=== PATIENT | female | born 1970 | race African-American/Black ===

== ENCOUNTER 2020-05-07 17:42 | Observation (INO) ==
[2020-05-07] MEDS ORDERED: ONDANSETRON 4 MG/2 ML VIAL IV STA (18:49)
[2020-05-07] MEDS ORDERED: ALBUTEROL/IPRATROPIUM 3 ML NEB RESP TX STA (18:49)
[2020-05-07] MEDS ORDERED: methylPREDNISolone SOD SUC 125 MG/2 ML VIAL IV STA (18:49)
[2020-05-07] MEDS ORDERED: FUROSEMIDE 100 MG/10 ML VIAL IV STA (18:49)
[2020-05-07] MEDS ORDERED: ASPIRIN 325 MG TABLET PO STA (18:49)
[2020-05-07] MEDS ORDERED: MORPHINE 4 MG/1 ML VIAL IV STA (18:49)
[2020-05-07] MEDS ORDERED: NITROGLYCERIN 2% OINT 1 INCH/GM PACK TOP STA (18:52)
[2020-05-07 19:08] LABS: Basophils % 0.2 % (0.0-0.8); Eosinophils # 0.2 10*3/uL (0.0-0.87); Eosinophils % 1.9 % (0.00-10.9); Hematocrit 31.7 VOL% (35.7-47.0); Hemoglobin 9.8 GM/DL (12.0-16.0); Immature Granulocytes % 0.3 %; Immature Granulocytes Absolute 0.03 #; Lymphocytes # 2.6 10*3/uL (1.4-4.0); Lymphocytes % 27.8 % (21.3-54.2); Mean Corpuscular HGB Conc 30.9 GM/DL (32-36); Mean Corpuscular Volume 82.8 FL (87-102); Mean Platelet Volume 10.9 FL (9.6-12.0); Monocytes % 9.8 % (1.7-12.7); Platelet Count 252 T/CUMM (130-400); Red Blood Count 3.83 MC/CUMM (3.8-5.5); Red Cell Distribution Width 15.7 % (9.3-17.3); White Blood Count 9.5 T/CUMM (4-12)
[2020-05-07 19:13] LABS: PT Patient Result 10.7 SECS (9.8-11.9)
[2020-05-07 19:17] LABS: Alanine Aminotransferase 304 U/L (13-56); Albumin 3.5 G/DL (3.4-5.0); Alkaline Phosphatase 187 U/L (45-117); Aspartate Amino Transferase 173 U/L (0-37); Bilirubin,Total < 0.39 MG/DL (0.2-1.0); Blood Urea Nitrogen 21 MG/DL (7-18); Calcium 8.9 MG/DL (8.5-10.1); Estimated Glom Filtration Rate 99 ML/MIN; Glucose 157 MG/DL (74-106); Osmolality,Calculated 288.1 MOS/KG (273-304); Total Protein 7.3 G/DL (6.4-8.3)
[2020-05-07 20:45] LABS: Bilirubin,Urine Negative (Negative); Blood, Urine Negative (Negative); Glucose,Urine (UA) Negative (Negative); Ketones,Urine Negative (Negative); Mucus,Urine Occasional /LPF (Occasional); Nitrite,Urine Negative (Negative); Protein,Urine Negative; Squamous Epithelial Cell,Urine Occasional /HPF (0-10); Urine Appearance CLEAR (Clear); Urine Color Yellow (Yellow); Urine Specific Gravity 1.011 (1.001-1.035); Urine Urobilinogen < 2.0 EU/DL (0.2-1.0)
[2020-05-07 20:46] LABS: Barbiturates Screen,Urine Negative (Negative); Benzodiazepines Screen,Urine Negative (Negative); Cannabinoid Screen,Urine Negative (Negative); Opiate Screen,Urine Negative (Negative); Phencyclidine Screen,Urine Negative (Negative)
[2020-05-08] MEDS ORDERED: DOCUSATE SODIUM 100 MG CAPSULE PO PRN (02:20)
[2020-05-08] MEDS ORDERED: ONDANSETRON 4 MG/2 ML VIAL IV PRN (02:20)
[2020-05-08] MEDS ORDERED: hydrALAZINE 20 MG/1 ML VIAL IV PRN (02:20)
[2020-05-08] MEDS ORDERED: ACETAMINOPHEN 325 MG TABLET PO PRN (02:20)
[2020-05-08] MEDS ORDERED: MORPHINE 4 MG/1 ML VIAL IV PRN (02:20)
[2020-05-08] MEDS ORDERED: GLUCAGON 1 MG VIAL IM PRN (02:20)
[2020-05-08] MEDS ORDERED: DEXTROSE 50% 25 GM/50 ML VIAL IV PRN (02:20)
[2020-05-08 05:44] LABS: Basophils % 0.1 % (0.0-0.8); Hemoglobin 9.8 GM/DL (12.0-16.0); Immature Granulocytes % 0.6 %; Immature Granulocytes Absolute 0.06 #; Lymphocytes # 0.9 10*3/uL (1.4-4.0); Lymphocytes % 8.7 % (21.3-54.2); Mean Corpuscular HGB Conc 30.6 GM/DL (32-36); Mean Corpuscular Volume 84.9 FL (87-102); Mean Platelet Volume 10.9 FL (9.6-12.0); Monocytes % 1.1 % (1.7-12.7); Neutrophils % 89.5 % (38.7-73.9); Platelet Count 232 T/CUMM (130-400); Red Blood Count 3.77 MC/CUMM (3.8-5.5); Red Cell Distribution Width 15.4 % (9.3-17.3); White Blood Count 10.4 T/CUMM (4-12)
[2020-05-08 06:26] LABS: % Iron Saturation 10.2 % (18-50); Ferritin 62.5 ng/ml (8-252); Risk Ratio 2.34; VLDL CHOLESTEROL 6.8 MG/DL; Vitamin B12 1322 PG/ML (211-911)
[2020-05-08 06:26] LABS: Albumin 3.2 G/DL (3.4-5.0); Calcium 8.9 MG/DL (8.5-10.1); Osmolality,Calculated 292.5 MOS/KG (273-304); Thyroid Stimulating Hormone 0.187 uIU/ml (0.358-3.74); Total Protein 7.3 G/DL (6.4-8.3)
[2020-05-08 06:45] LABS: Sedimentation Rate-Westergren 42 MM/HR (0-20)
[2020-05-08] MEDS ORDERED: PNEUMOCOCCAL VACCINE (23 VALENT) 0.5 ML VIAL IM ONE (09:00)
[2020-05-08 09:41] LABS: Hemoglobin A1 (Alkaline) 97.5 % (96.5-98.5); Hemoglobin A2 (Alkaline) 2.5 % (1.5-3.5)
[2020-05-08] MEDS: ENOXAPARIN 40 MG/0.4 ML SYRINGE SUBCUT SCH (10:34)
[2020-05-08] MEDS: INSULIN LISPRO 100 UNIT/ML SUBCUT SCH ×4 (10:34→21:34)
[2020-05-08] MEDS: GABAPENTIN 300 MG CAPSULE PO SCH ×2 (10:35→21:32)
[2020-05-08] MEDS: PANTOPRAZOLE 40 MG TABLET PO SCH (10:35)
[2020-05-08] MEDS: LOSARTAN 50 MG TABLET PO SCH (10:35)
[2020-05-08] MEDS: ISOSORBIDE MONONITRATE 60 MG TABLET PO SCH (10:36)
[2020-05-08] MEDS: POTASSIUM CHLORIDE 20 MEQ TABLET PO SCH (10:37)
[2020-05-08] MEDS: amLODIPine 10 MG TABLET PO SCH (10:37)
[2020-05-08] MEDS: ATORVASTATIN 40 MG TABLET PO SCH (10:37)
[2020-05-08] MEDS: FUROSEMIDE 40 MG/4 ML VIAL IV SCH ×2 (10:37→15:07)
[2020-05-08] MEDS: carvediloL 12.5 MG TABLET PO SCH ×2 (10:37→16:59)
[2020-05-08] MEDS: FERROUS SULFATE 325 MG TABLET PO SCH ×2 (15:07→21:33)
[2020-05-08] MEDS: prednisoLONE ACETATE 1% OPH SUSP 5 ML BOTTLE RIGHT EYE SCH ×2 (17:01→21:33)
[2020-05-08] MEDS: OFLOXACIN 0.3% OPH SOLN 5 ML BOTTLE RIGHT EYE SCH ×2 (17:02→21:33)
[2020-05-08] MEDS: POLYVINYL ALCOHOL 1.4% OPH SOLN 15 ML BOTTLE BOTH EYES PRN ×2 (17:02→21:33)
[2020-05-08] MEDS: KETOROLAC 0.5% OPH SOLN 5 ML BOTTLE RIGHT EYE SCH ×2 (17:03→21:33)
[2020-05-08] MEDS ORDERED: Insulin Glargine [Basaglar Kwikpen U-100 Insulin] 100 unit/mL SUBCUT SCH (19:00)
[2020-05-09 05:42] LABS: Basophils % 0.3 % (0.0-0.8); Eosinophils # 0.1 10*3/uL (0.0-0.87); Eosinophils % 0.8 % (0.00-10.9); Hematocrit 28.3 VOL% (35.7-47.0); Hemoglobin 8.6 GM/DL (12.0-16.0); Immature Granulocytes % 0.3 %; Immature Granulocytes Absolute 0.03 #; Lymphocytes # 3.2 10*3/uL (1.4-4.0); Lymphocytes % 28.5 % (21.3-54.2); Mean Corpuscular HGB Conc 30.4 GM/DL (32-36); Mean Corpuscular Volume 85.8 FL (87-102); Mean Platelet Volume 11.5 FL (9.6-12.0); Neutrophils % 60.1 % (38.7-73.9); Platelet Count 223 T/CUMM (130-400); White Blood Count 11.1 T/CUMM (4-12)
[2020-05-09 06:46] LABS: Albumin 3.2 G/DL (3.4-5.0); Bilirubin,Total 0.5 MG/DL (0.2-1.0); Calcium 9.2 MG/DL (8.5-10.1); Osmolality,Calculated 293.3 MOS/KG (273-304); Total Protein 6.8 G/DL (6.4-8.3)
[2020-05-09] MEDS: GABAPENTIN 300 MG CAPSULE PO SCH (08:56)
[2020-05-09] MEDS: ENOXAPARIN 40 MG/0.4 ML SYRINGE SUBCUT SCH (08:56)
[2020-05-09] MEDS: FERROUS SULFATE 325 MG TABLET PO SCH ×2 (08:57→14:27)
[2020-05-09] MEDS: KETOROLAC 0.5% OPH SOLN 5 ML BOTTLE RIGHT EYE SCH ×2 (08:57→14:28)
[2020-05-09] MEDS: carvediloL 12.5 MG TABLET PO SCH (08:57)
[2020-05-09] MEDS: POTASSIUM CHLORIDE 20 MEQ TABLET PO SCH (08:57)
[2020-05-09] MEDS: amLODIPine 10 MG TABLET PO SCH (08:57)
[2020-05-09] MEDS: LOSARTAN 50 MG TABLET PO SCH (08:57)
[2020-05-09] MEDS: POLYVINYL ALCOHOL 1.4% OPH SOLN 15 ML BOTTLE BOTH EYES PRN ×2 (08:57→14:28)
[2020-05-09] MEDS: PANTOPRAZOLE 40 MG TABLET PO SCH (08:57)
[2020-05-09] MEDS: OFLOXACIN 0.3% OPH SOLN 5 ML BOTTLE RIGHT EYE SCH ×2 (08:57→14:29)
[2020-05-09] MEDS: ATORVASTATIN 40 MG TABLET PO SCH (08:57)
[2020-05-09] MEDS: ISOSORBIDE MONONITRATE 60 MG TABLET PO SCH (08:57)
[2020-05-09] MEDS: prednisoLONE ACETATE 1% OPH SUSP 5 ML BOTTLE RIGHT EYE SCH ×2 (08:58→14:29)
[2020-05-09] MEDS ORDERED: BUMETANIDE 1 MG/4 ML VIAL IV SCH (09:03)
[2020-05-09] MEDS: INSULIN LISPRO 100 UNIT/ML SUBCUT SCH ×2 (11:09→12:33)
[2020-05-09 15:37] VITALS: BP 141/65
== END 2020-05-09 16:31 | disposition home or self-care (01) ==
LOC: N.EDINP 17:42 → N.ED 17:42 → N.EDINP 05-08 01:52 → N.TELES 05-08 02:04
PROVIDERS: ADMIT Family Medicine; ATTEND Family Medicine

== ENCOUNTER 2021-01-06 17:48 | Inpatient (IN) ==
[2021-01-06] MEDS ORDERED: hydrALAZINE 20 MG/1 ML VIAL IV STA (22:27)
[2021-01-06] MEDS ORDERED: SODIUM CHLORIDE 0.9% 500 ML IV STA (22:27)
[2021-01-06] MEDS ORDERED: PIPERACILLIN/TAZOBACTAM 3,375 MG in SODIUM CHLORIDE 0.9% 100 ML IV STA (22:27)
[2021-01-06 22:37] LABS: Basophils % 0.2 % (0.0-0.8); Eosinophils # 0.2 10*3/uL (0.0-0.87); Eosinophils % 1.4 % (0.00-10.9); Hemoglobin 12.7 GM/DL (12.0-16.0); Immature Granulocytes % 0.2 %; Immature Granulocytes Absolute 0.03 #; Lymphocytes # 4.2 10*3/uL (1.4-4.0); Lymphocytes % 31.5 % (21.3-54.2); Mean Corpuscular Volume 82.7 FL (87-102); Mean Platelet Volume 11.7 FL (9.6-12.0); Monocytes % 6.6 % (1.7-12.7); Neutrophils % 60.1 % (38.7-73.9); Platelet Count 363 T/CUMM (130-400); Red Blood Count 4.96 MC/CUMM (3.8-5.5); Red Cell Distribution Width 13.6 % (9.3-17.3); White Blood Count 13.3 T/CUMM (4-12)
[2021-01-06 23:19] LABS: Alanine Aminotransferase 21 U/L (13-56); Albumin 2.8 G/DL (3.4-5.0); Alkaline Phosphatase 148 U/L (45-117); Amylase 48 U/L (25-115); Aspartate Amino Transferase 14 U/L (0-37); Bilirubin,Total < 0.39 MG/DL (0.20-1.00); Blood Urea Nitrogen 9 MG/DL (7-18); Calcium 9.2 MG/DL (8.5-10.1); Carbon Dioxide 32 MMOL/L (21-32); Estimated Glom Filtration Rate 109 ML/MIN; Glucose 478 MG/DL (74-106); Osmolality,Calculated 292.8 MOS/KG (273-304); Potassium 3.4 MMOL/L (3.5-5.1); Sodium 137 MMOL/L (136-145); Total Protein 7.4 G/DL (6.4-8.2)
[2021-01-06] MEDS ORDERED: INSULIN REGULAR 100 UNIT/ML SUBCUT STA (23:30)
[2021-01-06] MEDS ORDERED: POTASSIUM CHLORIDE 20 MEQ TABLET PO STA (23:31)
[2021-01-06] MEDS ORDERED: amLODIPine 5 MG TABLET PO STA (23:33)
[2021-01-06] MEDS ORDERED: DEXTROSE 50% 25 GM/50 ML VIAL IV PRN (23:38)
[2021-01-06] MEDS ORDERED: GLUCAGON 1 MG VIAL IM PRN (23:38)
[2021-01-06] MEDS ORDERED: ONDANSETRON 4 MG/2 ML VIAL IV PRN (23:38)
[2021-01-06] MEDS ORDERED: MORPHINE 2 MG/1 ML SYRINGE IV PRN (23:38)
[2021-01-07] LABS: Bacteria,Urine Occasional /HPF (Few); Bilirubin,Urine Negative (Negative); Blood, Urine Small mg/dL (Negative); Glucose,Urine (UA) >=500 mg/dL (Negative); Ketones,Urine Negative (Negative); Nitrite,Urine Negative (Negative); Protein,Urine 100 MG/DL; RBC,Urine 6 /HPF (0-4); Squamous Epithelial Cell,Urine Occasional /HPF (0-10); Urine Appearance CLEAR (Clear); Urine Color Yellow (Yellow); Urine Specific Gravity 1.022 (1.001-1.035); Urine Urobilinogen < 2.0 EU/DL (0.2-1.0)
[2021-01-07] MEDS ORDERED: VANCOMYCIN 1,000 MG VIAL ONE (00:49)
[2021-01-07] MEDS ORDERED: hydrALAZINE 20 MG/1 ML VIAL IV PRN (01:43)
[2021-01-07] MEDS: LACTATED RINGERS 1,000 ML IV SCH ×4 (01:48→23:22)
[2021-01-07 01:53] LABS: Basophils % 0.3 % (0.0-0.8); Eosinophils # 0.2 10*3/uL (0.0-0.87); Eosinophils % 1.1 % (0.00-10.9); Hematocrit 36.9 VOL% (35.7-47.0); Immature Granulocytes % 0.3 %; Immature Granulocytes Absolute 0.04 #; Lymphocytes # 3.1 10*3/uL (1.4-4.0); Lymphocytes % 23.5 % (21.3-54.2); Mean Corpuscular HGB Conc 32.5 GM/DL (32-36); Mean Corpuscular Volume 81.5 FL (87-102); Mean Platelet Volume 11.5 FL (9.6-12.0); Monocytes % 8.1 % (1.7-12.7); Neutrophils % 66.7 % (38.7-73.9); Platelet Count 325 T/CUMM (130-400); Red Blood Count 4.53 MC/CUMM (3.8-5.5); Red Cell Distribution Width 13.6 % (9.3-17.3); White Blood Count 13.1 T/CUMM (4-12)
[2021-01-07 02:18] LABS: Calcium 8.8 MG/DL (8.5-10.1); Osmolality,Calculated 291.7 MOS/KG (273-304); Potassium 3.1 MMOL/L (3.5-5.1)
[2021-01-07] MEDS: VANCOMYCIN INJ 1,500 MG in SODIUM CHLORIDE 0.9% 500 ML IV SCH ×2 (02:40→18:02)
[2021-01-07] MEDS: PIPERACILLIN/TAZOBACTAM 3,375 MG in SODIUM CHLORIDE 0.9% 100 ML IV SCH ×3 (05:31→22:08)
[2021-01-07] MEDS ORDERED: POTASSIUM CHLORIDE 20 MEQ TABLET PO ONE (10:42)
[2021-01-07] MEDS: INSULIN REGULAR 100 UNIT/ML SUBCUT SCH ×4 (11:12→20:35)
[2021-01-07] MEDS: ATORVASTATIN 40 MG TABLET PO SCH (11:15)
[2021-01-07] MEDS: PANTOPRAZOLE 40 MG TABLET PO SCH (11:15)
[2021-01-07] MEDS: LOSARTAN 50 MG TABLET PO SCH (11:15)
[2021-01-07] MEDS: carvediloL 12.5 MG TABLET PO SCH ×2 (11:16→20:34)
[2021-01-07] MEDS: ENOXAPARIN 40 MG/0.4 ML SYRINGE SUBCUT SCH (11:19)
[2021-01-07] MEDS: amLODIPine 10 MG TABLET PO SCH (11:20)
[2021-01-07] MEDS: INSULIN GLARGINE 100 UNIT/ML SUBCUT SCH (20:35)
[2021-01-08] MEDS: VANCOMYCIN INJ 1,500 MG in SODIUM CHLORIDE 0.9% 500 ML IV SCH (01:42)
[2021-01-08] MEDS: LACTATED RINGERS 1,000 ML IV SCH (01:42)
[2021-01-08] MEDS: PIPERACILLIN/TAZOBACTAM 3,375 MG in SODIUM CHLORIDE 0.9% 100 ML IV SCH (05:44)
[2021-01-08 06:59] LABS: Calcium 8.2 MG/DL (8.5-10.1); Osmolality,Calculated 284.5 MOS/KG (273-304); Potassium 3.7 MMOL/L (3.5-5.1)
[2021-01-08] MEDS: INSULIN REGULAR 100 UNIT/ML SUBCUT SCH ×4 (08:36→20:35)
[2021-01-08] MEDS: PANTOPRAZOLE 40 MG TABLET PO SCH (08:36)
[2021-01-08] MEDS: ENOXAPARIN 40 MG/0.4 ML SYRINGE SUBCUT SCH (08:36)
[2021-01-08] MEDS: LOSARTAN 50 MG TABLET PO SCH (08:36)
[2021-01-08] MEDS: carvediloL 12.5 MG TABLET PO SCH ×2 (08:36→20:34)
[2021-01-08] MEDS: amLODIPine 10 MG TABLET PO SCH (08:36)
[2021-01-08] MEDS: ATORVASTATIN 40 MG TABLET PO SCH (08:36)
[2021-01-08] MEDS ORDERED: ERTAPENEM 1,000 MG in SODIUM CHLORIDE 0.9% 100 ML IV SCH (16:00)
[2021-01-08] MEDS: INSULIN GLARGINE 100 UNIT/ML SUBCUT SCH (20:35)
[2021-01-09] MEDS: LACTATED RINGERS 1,000 ML IV SCH ×3 (00:20→03:57)
[2021-01-09 05:44] LABS: Basophils % 0.1 % (0.0-0.8); Eosinophils # 0.2 10*3/uL (0.0-0.87); Eosinophils % 1.9 % (0.00-10.9); Hematocrit 33.6 VOL% (35.7-47.0); Hemoglobin 10.3 GM/DL (12.0-16.0); Immature Granulocytes % 0.3 %; Immature Granulocytes Absolute 0.03 #; Lymphocytes # 3.3 10*3/uL (1.4-4.0); Lymphocytes % 30.5 % (21.3-54.2); Mean Corpuscular HGB Conc 30.7 GM/DL (32-36); Mean Corpuscular Volume 84.4 FL (87-102); Mean Platelet Volume 11.7 FL (9.6-12.0); Neutrophils % 59.2 % (38.7-73.9); Platelet Count 302 T/CUMM (130-400); Red Blood Count 3.98 MC/CUMM (3.8-5.5); Red Cell Distribution Width 14.4 % (9.3-17.3); White Blood Count 10.8 T/CUMM (4-12)
[2021-01-09 06:22] LABS: Calcium 8.2 MG/DL (8.5-10.1); Osmolality,Calculated 286.3 MOS/KG (273-304); Potassium 3.5 MMOL/L (3.5-5.1)
[2021-01-09 08:48] VITALS: BP 154/116
[2021-01-09] MEDS: PANTOPRAZOLE 40 MG TABLET PO SCH (08:57)
[2021-01-09] MEDS: LOSARTAN 50 MG TABLET PO SCH (08:58)
[2021-01-09] MEDS: ENOXAPARIN 40 MG/0.4 ML SYRINGE SUBCUT SCH (08:58)
[2021-01-09] MEDS: amLODIPine 10 MG TABLET PO SCH (08:58)
[2021-01-09] MEDS: INSULIN REGULAR 100 UNIT/ML SUBCUT SCH (08:58)
[2021-01-09] MEDS: carvediloL 12.5 MG TABLET PO SCH (08:58)
== END 2021-01-09 11:36 | disposition home health service (06) | DRG 638 ==
LOC: N.ED 17:48 → SUATTDRO 23:38 → N.EDINP 23:38 → N.TELES 01-07 01:00
PROVIDERS: ADMIT Internal Medicine; ATTEND Internal Medicine Geriatric Medicine

== ENCOUNTER 2022-03-27 20:53 | Inpatient (IN) ==
[2022-03-27] MEDS ORDERED: SODIUM CHLORIDE 0.9% 1,000 ML IV STA (21:57)
[2022-03-27] MEDS ORDERED: ALBUTEROL/IPRATROPIUM 3 ML NEB RESP TX STA (21:57)
[2022-03-27] MEDS ORDERED: KETOROLAC 30 MG/1 ML VIAL IV STA (22:00)
[2022-03-27 22:27] LABS: Basophils % 0.3 % (0.0-0.8); Eosinophils % 0.2 % (0.00-10.9); Hematocrit 21.9 VOL% (35.7-47.0); Hemoglobin 6.7 GM/DL (12.0-16.0); Immature Granulocytes % 0.7 %; Immature Granulocytes Absolute 0.08 #; Lymphocytes # 1.1 10*3/uL (1.4-4.0); Lymphocytes % 9.6 % (21.3-54.2); Mean Corpuscular HGB Conc 30.6 GM/DL (32-36); Mean Corpuscular Volume 77.9 FL (87-102); Mean Platelet Volume 10.7 FL (9.6-12.0); Monocytes # 1.4 10*3/uL (0.11-0.8); Monocytes % 12.3 % (1.7-12.7); Neutrophils % 76.9 % (38.7-73.9); Platelet Count 324 T/CUMM (130-400); Red Blood Count 2.81 MC/CUMM (3.8-5.5); Red Cell Distribution Width 17.5 % (9.3-17.3); White Blood Count 11.2 T/CUMM (4-12)
[2022-03-27 22:28] LABS: Arterial Base Excess iSTAT 2 MMOL/L (-2.5-2.5); Arterial Bicarbonate iSTAT 26.6 MMOL/L (20-26); Arterial O2 Saturation iSTAT 97 % (95-100); Arterial PCO2 iSTAT 40 MM HG (35-48); Arterial PO2 iSTAT 94 MM HG (80-95); Arterial Total CO2 iSTAT 28 MMO/L (23-27); Arterial pH iSTAT 7.431 (7.35-7.45)
[2022-03-27 22:42] LABS: INR 1.2; PT Patient Result 13.5 SECS (10.1-12.1)
[2022-03-27 23:01] LABS: Albumin 2.2 G/DL (3.4-5.0); Bilirubin,Total 0.4 MG/DL (0.20-1.00); Potassium 4.3 MMOL/L (3.5-5.1); Total Protein 7.4 G/DL (6.4-8.2)
[2022-03-27 23:31] LABS: Bacteria,Urine Occasional /HPF (Few); Bilirubin,Urine Negative (Negative); Blood, Urine Small mg/dL (Negative); Glucose,Urine (UA) Negative (Negative); Hyaline Casts,Urine 2 /LPF (0-3); Ketones,Urine Negative (Negative); Nitrite,Urine Negative (Negative); Protein,Urine >=500 mg/dL (Negative); RBC,Urine 38 /HPF (0-4); Squamous Epithelial Cell,Urine Occasional /HPF (0-10); Urine Appearance CLOUDY (Clear); Urine Color Yellow (Yellow); Urine Specific Gravity 1.011 (1.001-1.035); Urine Urobilinogen < 2.0 eU/dL (<2.0)
[2022-03-27 23:33] LABS: Sedimentation Rate-Westergren 134 MM/HR (0-30)
[2022-03-28] MEDS ORDERED: ONDANSETRON 4 MG/2 ML VIAL IV PRN (01:48)
[2022-03-28] MEDS ORDERED: LEVOFLOXACIN INJ 750 MG/150 ML PREMIX IV ONE (02:30)
[2022-03-28] MEDS ORDERED: FUROSEMIDE 40 MG/4 ML VIAL IV STA (02:34)
[2022-03-28 06:42] LABS: Basophils % 0.1 % (0.0-0.8); Eosinophils % 0.1 % (0.00-10.9); Hematocrit 20.3 VOL% (35.7-47.0); Immature Granulocytes Absolute 0.09 #; Lymphocytes # 1.2 10*3/uL (1.4-4.0); Lymphocytes % 13.2 % (21.3-54.2); Mean Corpuscular HGB Conc 30.5 GM/DL (32-36); Mean Corpuscular Volume 78.4 FL (87-102); Mean Platelet Volume 10.6 FL (9.6-12.0); Monocytes # 1.6 10*3/uL (0.11-0.8); Neutrophils % 68.6 % (38.7-73.9); Platelet Count 289 T/CUMM (130-400); Red Blood Count 2.59 MC/CUMM (3.8-5.5); Red Cell Distribution Width 17.4 % (9.3-17.3); White Blood Count 9.3 T/CUMM (4-12)
[2022-03-28 06:44] LABS: Hemoglobin 6.2 GM/DL (12.0-16.0)
[2022-03-28 07:16] LABS: Albumin 2.1 G/DL (3.4-5.0); Bilirubin,Total 0.4 MG/DL (0.20-1.00); Calcium 8.4 MG/DL (8.5-10.1); Osmolality,Calculated 293.7 MOS/KG (273-304); Potassium 4.5 MMOL/L (3.5-5.1); Thyroid Stimulating Hormone 0.35 uIU/ml (0.358-3.74); Total Protein 6.6 G/DL (6.4-8.2)
[2022-03-28 07:17] LABS: Lymphocytes 10 % (20-55); Platelet Estimate Normal; Total Cells Counted 100
[2022-03-28 07:18] LABS: Anisocytosis 1+; Ovalocytes Few
[2022-03-28 07:19] LABS: Hypochromia Slight
[2022-03-28] MEDS ORDERED: SODIUM CHLORIDE 0.9% 1,000 ML IV PRN (07:47)
[2022-03-28] MEDS: PANTOPRAZOLE 40 MG VIAL IV SCH (09:34)
[2022-03-28] MEDS ORDERED: ACETAMINOPHEN 325 MG TABLET ONE (10:18)
[2022-03-28] MEDS ORDERED: GLUCAGON 1 MG VIAL IM PRN (14:09)
[2022-03-28] MEDS ORDERED: DEXTROSE 10% 250 ML BAG IV PRN (14:10)
[2022-03-28] MEDS: FUROSEMIDE 80 MG TABLET PO SCH (15:16)
[2022-03-28 15:29] LABS: % Iron Saturation 7.1 % (18-50); Ferritin 470.4 ng/mL (8-252)
[2022-03-28 15:34] LABS: Free T4 (Free Thyroxine) 1.35 NG/DL (0.76-1.46)
[2022-03-28] MEDS: INSULIN LISPRO 100 UNIT/ML SUBCUT SCH ×2 (17:30→20:53)
[2022-03-28] MEDS: carvediloL 25 MG TABLET PO SCH (20:53)
[2022-03-28] MEDS: GABAPENTIN 300 MG CAPSULE PO SCH (20:54)
[2022-03-28] MEDS: ACETAMINOPHEN 325 MG TABLET PO PRN (20:54)
[2022-03-28] MEDS: MORPHINE 2 MG/1 ML SYRINGE IV PRN (21:33)
[2022-03-28] MEDS ORDERED: diphenhydrAMINE CAP 50 MG CAPSULE PO PRN (22:13)
[2022-03-29] MEDS: ACETAMINOPHEN 325 MG TABLET PO PRN ×3 (00:22→21:27)
[2022-03-29] MEDS: INSULIN LISPRO 100 UNIT/ML SUBCUT SCH ×4 (09:05→21:13)
[2022-03-29] MEDS: carvediloL 25 MG TABLET PO SCH ×2 (09:06→21:28)
[2022-03-29] MEDS: GABAPENTIN 300 MG CAPSULE PO SCH ×2 (09:06→21:27)
[2022-03-29] MEDS: SPIRONOLACTONE 25 MG TABLET PO SCH (09:06)
[2022-03-29] MEDS: FUROSEMIDE 80 MG TABLET PO SCH ×2 (09:15→15:26)
[2022-03-29] MEDS: PANTOPRAZOLE 40 MG VIAL IV SCH (09:15)
[2022-03-29 10:50] LABS: Basophils % 0.1 % (0.0-0.8); Hematocrit 24.1 VOL% (35.7-47.0); Hemoglobin 7.4 GM/DL (12.0-16.0); Immature Granulocytes % 0.7 %; Immature Granulocytes Absolute 0.06 #; Lymphocytes # 1.2 10*3/uL (1.4-4.0); Lymphocytes % 14.4 % (21.3-54.2); Mean Corpuscular HGB Conc 30.7 GM/DL (32-36); Mean Corpuscular Volume 81.7 FL (87-102); Mean Platelet Volume 10.9 FL (9.6-12.0); Monocytes # 1.5 10*3/uL (0.11-0.8); Monocytes % 18.4 % (1.7-12.7); Neutrophils % 66.4 % (38.7-73.9); Platelet Count 278 T/CUMM (130-400); Red Blood Count 2.95 MC/CUMM (3.8-5.5); Red Cell Distribution Width 17.3 % (9.3-17.3)
[2022-03-29 11:07] LABS: Calcium 8.8 MG/DL (8.5-10.1); Osmolality,Calculated 290.8 MOS/KG (273-304); Potassium 4.3 MMOL/L (3.5-5.1)
[2022-03-29 11:33] LABS: Band Neutrophils 9 % (0-10); Lymphocytes 12 % (20-55); Platelet Estimate Normal; Total Cells Counted 100
[2022-03-29 11:34] LABS: Anisocytosis 1+; Burr Cells Few; Hypochromia Slight
[2022-03-29] MEDS: FERRIC GLUCONATE COMPLEX 125 MG in SODIUM CHLORIDE 0.9% 100 ML IV SCH (13:17)
[2022-03-29] MEDS ORDERED: hydrALAZINE 20 MG/1 ML VIAL IV PRN (15:50)
[2022-03-30] MEDS ORDERED: LEVOFLOXACIN INJ 500 MG/100 ML PREMIX IV SCH (03:00)
[2022-03-30 05:34] LABS: Basophils % 0.2 % (0.0-0.8); Hematocrit 23.2 VOL% (35.7-47.0); Hemoglobin 6.9 GM/DL (12.0-16.0); Immature Granulocytes % 0.7 %; Immature Granulocytes Absolute 0.07 #; Lymphocytes % 19.4 % (21.3-54.2); Mean Corpuscular HGB Conc 29.7 GM/DL (32-36); Monocytes # 1.5 10*3/uL (0.11-0.8); Monocytes % 14.9 % (1.7-12.7); Neutrophils % 64.8 % (38.7-73.9); Platelet Count 270 T/CUMM (130-400); Red Blood Count 2.83 MC/CUMM (3.8-5.5); Red Cell Distribution Width 17.9 % (9.3-17.3); White Blood Count 10.3 T/CUMM (4-12)
[2022-03-30 05:51] LABS: Calcium 8.8 MG/DL (8.5-10.1); Potassium 4.3 MMOL/L (3.5-5.1)
[2022-03-30] MEDS: ACETAMINOPHEN 325 MG TABLET PO PRN (08:05)
[2022-03-30] MEDS: SPIRONOLACTONE 25 MG TABLET PO SCH (08:48)
[2022-03-30] MEDS: GABAPENTIN 300 MG CAPSULE PO SCH ×2 (08:48→20:04)
[2022-03-30] MEDS: FUROSEMIDE 80 MG TABLET PO SCH ×2 (08:48→16:04)
[2022-03-30] MEDS: PANTOPRAZOLE 40 MG VIAL IV SCH (08:48)
[2022-03-30] MEDS: FERRIC GLUCONATE COMPLEX 125 MG in SODIUM CHLORIDE 0.9% 100 ML IV SCH ×2 (08:49→14:36)
[2022-03-30] MEDS: MORPHINE 2 MG/1 ML SYRINGE IV PRN ×2 (08:50→20:05)
[2022-03-30] MEDS: carvediloL 25 MG TABLET PO SCH ×2 (09:09→20:04)
[2022-03-30] MEDS: INSULIN LISPRO 100 UNIT/ML SUBCUT SCH ×4 (09:10→20:12)
[2022-03-30] MEDS: AMPICILLIN INJ 2,000 MG in SODIUM CHLORIDE 0.9% 100 ML IV SCH ×2 (13:47→20:04)
[2022-03-31] MEDS: ACETAMINOPHEN 325 MG TABLET PO PRN ×2 (01:13→18:29)
[2022-03-31] MEDS: AMPICILLIN INJ 2,000 MG in SODIUM CHLORIDE 0.9% 100 ML IV SCH ×4 (03:16→20:27)
[2022-03-31 04:52] LABS: Basophils % 0.2 % (0.0-0.8); Eosinophils % 0.1 % (0.00-10.9); Hematocrit 24.2 VOL% (35.7-47.0); Hemoglobin 7.3 GM/DL (12.0-16.0); Immature Granulocytes % 0.8 %; Lymphocytes # 1.8 10*3/uL (1.4-4.0); Lymphocytes % 14.9 % (21.3-54.2); Mean Corpuscular HGB Conc 30.2 GM/DL (32-36); Mean Corpuscular Volume 83.4 FL (87-102); Mean Platelet Volume 11.5 FL (9.6-12.0); Monocytes # 1.4 10*3/uL (0.11-0.8); Monocytes % 12.1 % (1.7-12.7); Neutrophils % 71.9 % (38.7-73.9); Platelet Count 262 T/CUMM (130-400); Red Cell Distribution Width 18.4 % (9.3-17.3); White Blood Count 11.8 T/CUMM (4-12)
[2022-03-31 05:09] LABS: Calcium 8.6 MG/DL (8.5-10.1); Osmolality,Calculated 289.1 MOS/KG (273-304); Potassium 4.6 MMOL/L (3.5-5.1)
[2022-03-31] MEDS: MORPHINE 2 MG/1 ML SYRINGE IV PRN ×2 (06:40→16:04)
[2022-03-31] MEDS: GABAPENTIN 300 MG CAPSULE PO SCH ×2 (09:49→20:27)
[2022-03-31] MEDS: carvediloL 25 MG TABLET PO SCH ×2 (09:49→20:27)
[2022-03-31] MEDS: FUROSEMIDE 80 MG TABLET PO SCH ×2 (09:49→15:05)
[2022-03-31] MEDS: SPIRONOLACTONE 25 MG TABLET PO SCH (09:49)
[2022-03-31] MEDS: INSULIN LISPRO 100 UNIT/ML SUBCUT SCH ×4 (09:53→20:26)
[2022-03-31] MEDS: FERRIC GLUCONATE COMPLEX 125 MG in SODIUM CHLORIDE 0.9% 100 ML IV SCH (10:14)
[2022-03-31] MEDS: PANTOPRAZOLE 40 MG VIAL IV SCH (10:15)
[2022-04-01] MEDS: AMPICILLIN INJ 2,000 MG in SODIUM CHLORIDE 0.9% 100 ML IV SCH ×4 (02:40→21:29)
[2022-04-01] MEDS: MORPHINE 2 MG/1 ML SYRINGE IV PRN (06:21)
[2022-04-01 06:37] LABS: Basophils % 0.1 % (0.0-0.8); Eosinophils # 0.1 10*3/uL (0.0-0.87); Eosinophils % 1.5 % (0.00-10.9); Hematocrit 23.8 VOL% (35.7-47.0); Hemoglobin 7.1 GM/DL (12.0-16.0); Immature Granulocytes % 0.5 %; Immature Granulocytes Absolute 0.05 #; Lymphocytes # 2.1 10*3/uL (1.4-4.0); Lymphocytes % 22.4 % (21.3-54.2); Mean Corpuscular HGB Conc 29.8 GM/DL (32-36); Mean Corpuscular Volume 83.5 FL (87-102); Mean Platelet Volume 11.3 FL (9.6-12.0); Monocytes # 1.4 10*3/uL (0.11-0.8); Monocytes % 14.7 % (1.7-12.7); Neutrophils % 60.8 % (38.7-73.9); Platelet Count 283 T/CUMM (130-400); Red Blood Count 2.85 MC/CUMM (3.8-5.5); Red Cell Distribution Width 18.5 % (9.3-17.3); White Blood Count 9.4 T/CUMM (4-12)
[2022-04-01 07:05] LABS: Calcium 8.8 MG/DL (8.5-10.1); Potassium 4.5 MMOL/L (3.5-5.1)
[2022-04-01] MEDS: INSULIN LISPRO 100 UNIT/ML SUBCUT SCH ×4 (08:41→21:30)
[2022-04-01] MEDS: GABAPENTIN 300 MG CAPSULE PO SCH ×2 (08:55→21:29)
[2022-04-01] MEDS: carvediloL 25 MG TABLET PO SCH ×2 (08:56→21:29)
[2022-04-01] MEDS: FUROSEMIDE 80 MG TABLET PO SCH ×2 (08:56→15:53)
[2022-04-01] MEDS: SPIRONOLACTONE 25 MG TABLET PO SCH (08:56)
[2022-04-02] MEDS: AMPICILLIN INJ 2,000 MG in SODIUM CHLORIDE 0.9% 100 ML IV SCH ×4 (03:24→21:01)
[2022-04-02 05:52] LABS: Basophils % 0.2 % (0.0-0.8); Eosinophils # 0.2 10*3/uL (0.0-0.87); Hematocrit 23.8 VOL% (35.7-47.0); Hemoglobin 7.2 GM/DL (12.0-16.0); Immature Granulocytes % 0.7 %; Immature Granulocytes Absolute 0.06 #; Lymphocytes # 2.3 10*3/uL (1.4-4.0); Lymphocytes % 25.1 % (21.3-54.2); Mean Corpuscular HGB Conc 30.3 GM/DL (32-36); Mean Corpuscular Volume 83.2 FL (87-102); Mean Platelet Volume 10.8 FL (9.6-12.0); Monocytes # 1.3 10*3/uL (0.11-0.8); Platelet Count 319 T/CUMM (130-400); Red Blood Count 2.86 MC/CUMM (3.8-5.5); Red Cell Distribution Width 18.6 % (9.3-17.3); White Blood Count 9.1 T/CUMM (4-12)
[2022-04-02 06:16] LABS: Calcium 9.1 MG/DL (8.5-10.1); Osmolality,Calculated 293.2 MOS/KG (273-304); Potassium 4.4 MMOL/L (3.5-5.1)
[2022-04-02 06:17] LABS: Hypochromia 1+; Microcytosis 1+
[2022-04-02 06:18] LABS: Ovalocytes Slight
[2022-04-02 06:19] LABS: Platelet Estimate Normal
[2022-04-02] MEDS: FUROSEMIDE 80 MG TABLET PO SCH (10:08)
[2022-04-02] MEDS: SPIRONOLACTONE 25 MG TABLET PO SCH (10:08)
[2022-04-02] MEDS: GABAPENTIN 300 MG CAPSULE PO SCH ×2 (10:08→20:57)
[2022-04-02] MEDS: carvediloL 25 MG TABLET PO SCH ×2 (10:08→20:57)
[2022-04-02] MEDS: INSULIN LISPRO 100 UNIT/ML SUBCUT SCH ×4 (10:20→20:57)
[2022-04-02] MEDS ORDERED: FUROSEMIDE 40 MG TABLET PO SCH (16:00)
[2022-04-03] MEDS: AMPICILLIN INJ 2,000 MG in SODIUM CHLORIDE 0.9% 100 ML IV SCH (02:52)
[2022-04-03 06:09] LABS: Calcium 8.5 MG/DL (8.5-10.1); Osmolality,Calculated 292.2 MOS/KG (273-304); Potassium 4.9 MMOL/L (3.5-5.1)
[2022-04-03] MEDS ORDERED: diphenhydrAMINE CAP 25 MG CAPSULE PO PRN (08:30)
[2022-04-03] MEDS: carvediloL 25 MG TABLET PO SCH ×2 (08:55→21:30)
[2022-04-03] MEDS: INSULIN LISPRO 100 UNIT/ML SUBCUT SCH ×4 (08:57→21:26)
[2022-04-03] MEDS: GABAPENTIN 100 MG CAPSULE PO SCH ×2 (09:00→21:29)
[2022-04-04 05:46] LABS: Calcium 8.7 MG/DL (8.5-10.1); Osmolality,Calculated 292.4 MOS/KG (273-304); Potassium 5.1 MMOL/L (3.5-5.1)
[2022-04-04] MEDS: INSULIN LISPRO 100 UNIT/ML SUBCUT SCH ×4 (08:25→21:19)
[2022-04-04] MEDS: carvediloL 25 MG TABLET PO SCH ×2 (08:28→21:19)
[2022-04-04] MEDS: GABAPENTIN 100 MG CAPSULE PO SCH ×2 (08:28→21:19)
[2022-04-04] MEDS: AMPICILLIN INJ 2,000 MG in SODIUM CHLORIDE 0.9% 100 ML IV SCH (08:29)
[2022-04-05 08:14] LABS: Osmolality,Calculated 298.1 MOS/KG (273-304); Potassium 5.2 MMOL/L (3.5-5.1)
[2022-04-05] MEDS ORDERED: PROMETHAZINE INJ 12.5 MG in SODIUM CHLORIDE 0.9% 50 ML IV PRN (08:34)
[2022-04-05] MEDS: carvediloL 25 MG TABLET PO SCH ×2 (08:53→21:26)
[2022-04-05] MEDS: GABAPENTIN 100 MG CAPSULE PO SCH ×2 (08:53→21:26)
[2022-04-05] MEDS: INSULIN LISPRO 100 UNIT/ML SUBCUT SCH ×4 (08:54→21:26)
[2022-04-05] MEDS: AMPICILLIN INJ 2,000 MG in SODIUM CHLORIDE 0.9% 100 ML IV SCH (09:20)
[2022-04-06 06:21] LABS: Osmolality,Calculated 301.8 MOS/KG (273-304); Potassium 5.1 MMOL/L (3.5-5.1)
[2022-04-06] MEDS: INSULIN LISPRO 100 UNIT/ML SUBCUT SCH ×4 (08:24→20:59)
[2022-04-06] MEDS: AMPICILLIN INJ 2,000 MG in SODIUM CHLORIDE 0.9% 100 ML IV SCH (09:40)
[2022-04-06] MEDS: GABAPENTIN 100 MG CAPSULE PO SCH ×2 (09:40→20:57)
[2022-04-06] MEDS: carvediloL 25 MG TABLET PO SCH ×2 (09:40→20:58)
[2022-04-06] MEDS: ACETAMINOPHEN 325 MG TABLET PO PRN (10:15)
[2022-04-06 20:00] LABS: Bilirubin,Urine Negative (Negative); Blood, Urine Moderate mg/dL (Negative); Glucose,Urine (UA) 50 mg/dL (Negative); Ketones,Urine Negative (Negative); Nitrite,Urine Negative (Negative); Protein,Urine 100 mg/dL (Negative); Squamous Epithelial Cell,Urine Occasional /HPF (0-10); Urine Appearance Slightly Hazy (Clear); Urine Color Yellow (Yellow); Urine Specific Gravity 1.008 (1.001-1.035); Urine Urobilinogen < 2.0 eU/dL (<2.0)
[2022-04-07 05:12] LABS: Basophils % 0.2 % (0.0-0.8); Eosinophils # 0.2 10*3/uL (0.0-0.87); Eosinophils % 1.7 % (0.00-10.9); Hematocrit 25.1 VOL% (35.7-47.0); Hemoglobin 7.6 GM/DL (12.0-16.0); Immature Granulocytes % 0.8 %; Immature Granulocytes Absolute 0.09 #; Lymphocytes # 1.8 10*3/uL (1.4-4.0); Mean Corpuscular HGB Conc 30.3 GM/DL (32-36); Mean Platelet Volume 9.9 FL (9.6-12.0); Monocytes # 1.4 10*3/uL (0.11-0.8); Monocytes % 12.3 % (1.7-12.7); Platelet Count 414 T/CUMM (130-400); Red Cell Distribution Width 17.5 % (9.3-17.3); White Blood Count 11.3 T/CUMM (4-12)
[2022-04-07 05:44] LABS: Albumin 1.8 G/DL (3.4-5.0); Bilirubin,Total 0.4 MG/DL (0.20-1.00); Calcium 9.5 MG/DL (8.5-10.1); Osmolality,Calculated 300.8 MOS/KG (273-304); Potassium 4.9 MMOL/L (3.5-5.1); Total Protein 7.1 G/DL (6.4-8.2)
[2022-04-07] MEDS ORDERED: FUROSEMIDE 40 MG/4 ML VIAL IV ONE (09:00)
[2022-04-07] MEDS: INSULIN LISPRO 100 UNIT/ML SUBCUT SCH ×4 (09:32→20:30)
[2022-04-07] MEDS: AMPICILLIN INJ 2,000 MG in SODIUM CHLORIDE 0.9% 100 ML IV SCH (09:33)
[2022-04-07] MEDS: carvediloL 25 MG TABLET PO SCH ×2 (09:34→20:29)
[2022-04-07] MEDS: GABAPENTIN 100 MG CAPSULE PO SCH ×2 (09:34→20:29)
[2022-04-07] MEDS: ACETAMINOPHEN 325 MG TABLET PO PRN (20:30)
[2022-04-08] MEDS: ACETAMINOPHEN 325 MG TABLET PO PRN ×3 (04:10→21:43)
[2022-04-08 05:25] LABS: Basophils % 0.3 % (0.0-0.8); Eosinophils # 0.2 10*3/uL (0.0-0.87); Eosinophils % 1.7 % (0.00-10.9); Hematocrit 25.8 VOL% (35.7-47.0); Hemoglobin 7.7 GM/DL (12.0-16.0); Immature Granulocytes % 1.1 %; Immature Granulocytes Absolute 0.12 #; Lymphocytes # 2.6 10*3/uL (1.4-4.0); Lymphocytes % 23.1 % (21.3-54.2); Mean Corpuscular HGB Conc 29.8 GM/DL (32-36); Mean Corpuscular Volume 82.2 FL (87-102); Mean Platelet Volume 9.9 FL (9.6-12.0); Monocytes # 1.3 10*3/uL (0.11-0.8); Monocytes % 11.3 % (1.7-12.7); Neutrophils % 62.5 % (38.7-73.9); Platelet Count 462 T/CUMM (130-400); Red Blood Count 3.14 MC/CUMM (3.8-5.5); Red Cell Distribution Width 17.5 % (9.3-17.3)
[2022-04-08 05:42] LABS: Alanine Aminotransferase 22 U/L (13-56); Albumin 1.9 G/DL (3.4-5.0); Alkaline Phosphatase 289 U/L (45-117); Aspartate Amino Transferase 10 U/L (0-37); Bilirubin,Total < 0.39 MG/DL (0.20-1.00); Blood Urea Nitrogen 82 MG/DL (7-18); Calcium 9.2 MG/DL (8.5-10.1); Carbon Dioxide 29 MMOL/L (21-32); Chloride 106 MMOL/L (98-107); Glucose 137 MG/DL (74-106); Osmolality,Calculated 309.1 MOS/KG (273-304); Potassium 4.7 MMOL/L (3.5-5.1); Sodium 142 MMOL/L (136-145); Total Protein 7.2 G/DL (6.4-8.2)
[2022-04-08] MEDS ORDERED: FUROSEMIDE 40 MG/4 ML VIAL IV ONE ×2 (07:51→16:00)
[2022-04-08] MEDS: GABAPENTIN 100 MG CAPSULE PO SCH ×2 (09:49→21:43)
[2022-04-08] MEDS: carvediloL 25 MG TABLET PO SCH ×2 (09:49→21:43)
[2022-04-08] MEDS: AMPICILLIN INJ 2,000 MG in SODIUM CHLORIDE 0.9% 100 ML IV SCH (09:50)
[2022-04-08] MEDS: INSULIN LISPRO 100 UNIT/ML SUBCUT SCH ×4 (11:29→21:55)
[2022-04-09 05:42] LABS: Basophils % 0.3 % (0.0-0.8); Eosinophils # 0.2 10*3/uL (0.0-0.87); Hematocrit 26.5 VOL% (35.7-47.0); Hemoglobin 8.1 GM/DL (12.0-16.0); Immature Granulocytes % 0.7 %; Immature Granulocytes Absolute 0.08 #; Lymphocytes # 2.4 10*3/uL (1.4-4.0); Lymphocytes % 21.9 % (21.3-54.2); Mean Corpuscular HGB Conc 30.6 GM/DL (32-36); Mean Corpuscular Volume 82.3 FL (87-102); Mean Platelet Volume 9.9 FL (9.6-12.0); Monocytes # 1.1 10*3/uL (0.11-0.8); Monocytes % 10.1 % (1.7-12.7); Platelet Count 507 T/CUMM (130-400); Red Blood Count 3.22 MC/CUMM (3.8-5.5); Red Cell Distribution Width 17.2 % (9.3-17.3); White Blood Count 11.1 T/CUMM (4-12)
[2022-04-09 06:04] LABS: Albumin 1.9 G/DL (3.4-5.0); Bilirubin,Total 0.4 MG/DL (0.20-1.00); Calcium 9.1 MG/DL (8.5-10.1); Osmolality,Calculated 301.1 MOS/KG (273-304); Potassium 4.5 MMOL/L (3.5-5.1); Total Protein 7.4 G/DL (6.4-8.2)
[2022-04-09] MEDS ORDERED: FUROSEMIDE 40 MG/4 ML VIAL IV ONE ×2 (09:00→16:00)
[2022-04-09] MEDS: carvediloL 25 MG TABLET PO SCH ×2 (09:12→20:48)
[2022-04-09] MEDS: GABAPENTIN 100 MG CAPSULE PO SCH ×2 (09:12→20:48)
[2022-04-09] MEDS: INSULIN LISPRO 100 UNIT/ML SUBCUT SCH ×4 (09:55→20:47)
[2022-04-10 05:42] LABS: Basophils % 0.3 % (0.0-0.8); Eosinophils # 0.2 10*3/uL (0.0-0.87); Eosinophils % 1.6 % (0.00-10.9); Hematocrit 28.1 VOL% (35.7-47.0); Hemoglobin 8.5 GM/DL (12.0-16.0); Immature Granulocytes % 0.6 %; Immature Granulocytes Absolute 0.07 #; Lymphocytes # 2.8 10*3/uL (1.4-4.0); Lymphocytes % 24.2 % (21.3-54.2); Mean Corpuscular HGB Conc 30.2 GM/DL (32-36); Mean Corpuscular Volume 81.2 FL (87-102); Mean Platelet Volume 9.5 FL (9.6-12.0); Monocytes # 0.9 10*3/uL (0.11-0.8); Neutrophils % 65.3 % (38.7-73.9); Platelet Count 488 T/CUMM (130-400); Red Blood Count 3.46 MC/CUMM (3.8-5.5); White Blood Count 11.7 T/CUMM (4-12)
[2022-04-10 06:07] LABS: Alanine Aminotransferase 33 U/L (13-56); Albumin 1.9 G/DL (3.4-5.0); Alkaline Phosphatase 276 U/L (45-117); Aspartate Amino Transferase 25 U/L (0-37); Bilirubin,Total < 0.39 MG/DL (0.20-1.00); Blood Urea Nitrogen 59 MG/DL (7-18); Calcium 9.3 MG/DL (8.5-10.1); Carbon Dioxide 30 MMOL/L (21-32); Chloride 105 MMOL/L (98-107); Glucose 128 MG/DL (74-106); Osmolality,Calculated 301.1 MOS/KG (273-304); Potassium 4.1 MMOL/L (3.5-5.1); Sodium 142 MMOL/L (136-145); Total Protein 7.5 G/DL (6.4-8.2)
[2022-04-10] MEDS: INSULIN LISPRO 100 UNIT/ML SUBCUT SCH ×3 (08:40→13:05)
[2022-04-10] MEDS: carvediloL 25 MG TABLET PO SCH (09:08)
[2022-04-10] MEDS: GABAPENTIN 100 MG CAPSULE PO SCH (09:08)
[2022-04-10 12:01] VITALS: BP 186/92
== END 2022-04-10 15:55 | disposition home or self-care (01) | DRG 291 ==
LOC: EDUNIT# → EDBD → N.ED 20:53 → N.EDINP 03-28 01:47 → SUATTDRO 03-28 01:47 → N.5E 03-28 13:08
PROVIDERS: ADMIT Internal Medicine; ATTEND Internal Medicine

== ENCOUNTER 2022-05-22 10:29 | Inpatient (IN) ==
[2022-05-22] MEDS ORDERED: ONDANSETRON 4 MG/2 ML VIAL IV STA (11:01)
[2022-05-22] MEDS ORDERED: HYDROmorphone 1 MG/1 ML SYRINGE IV STA (11:01)
[2022-05-22] MEDS ORDERED: hydrALAZINE 20 MG/1 ML VIAL IV STA ×2 (11:15→13:30)
[2022-05-22 11:16] LABS: Basophils # 0.1 10*3/uL (0.0-0.2); Basophils % 0.3 % (0.0-0.8); Eosinophils % 0.2 % (0.00-10.9); Hematocrit 26.3 VOL% (35.7-47.0); Hemoglobin 8.2 GM/DL (12.0-16.0); Immature Granulocytes % 0.6 %; Lymphocytes # 2.5 10*3/uL (1.4-4.0); Lymphocytes % 16.1 % (21.3-54.2); Mean Corpuscular HGB Conc 31.2 GM/DL (32-36); Mean Corpuscular Volume 79.2 FL (87-102); Mean Platelet Volume 10.4 FL (9.6-12.0); Monocytes % 6.7 % (1.7-12.7); Neutrophils % 76.1 % (38.7-73.9); Platelet Count 362 T/CUMM (130-400); Red Blood Count 3.32 MC/CUMM (3.8-5.5); Red Cell Distribution Width 19.6 % (9.3-17.3); White Blood Count 15.4 T/CUMM (4-12)
[2022-05-22 11:38] LABS: Albumin 2.6 G/DL (3.4-5.0); Bilirubin,Total 0.4 MG/DL (0.20-1.00); Calcium 8.5 MG/DL (8.5-10.1); Osmolality,Calculated 287.8 MOS/KG (273-304); Potassium 3.1 MMOL/L (3.5-5.1); Total Protein 6.8 G/DL (6.4-8.2)
[2022-05-22 14:24] LABS: Urine Color Yellow (Yellow)
[2022-05-22 14:25] LABS: Bilirubin,Urine Negative (Negative); Blood, Urine Trace mg/dL (Negative); Glucose,Urine (UA) 100 mg/dL (Negative); Ketones,Urine Negative (Negative); Nitrite,Urine Negative (Negative); Protein,Urine >=300 mg/dL (Negative); Urine Appearance Clear (Clear); Urine Specific Gravity >= 1.030 (1.001-1.035); Urine Urobilinogen 0.2 eU/dL (<2.0); Urine pH 5.5 (4.5-8.0)
[2022-05-22 14:36] LABS: Amorphous Crystals,Urine Occasional /HPF (Few); Mucus,Urine Occasional /LPF (Occasional); RBC,Urine 18 /HPF (0-4); Squamous Epithelial Cell,Urine Occasional /HPF (0-10)
[2022-05-22] MEDS: ONDANSETRON 4 MG/2 ML VIAL IV PRN ×2 (15:55→21:10)
[2022-05-22] MEDS: FUROSEMIDE 40 MG/4 ML VIAL IV SCH ×2 (16:27→23:17)
[2022-05-22] MEDS: HEPARIN 5,000 UNIT/1 ML VIAL SUBCUT SCH ×2 (16:27→23:17)
[2022-05-22] MEDS: cefTRIAXone 1,000 MG in SODIUM CHLORIDE 0.9% 100 ML IV SCH (16:28)
[2022-05-22] MEDS: carvediloL 25 MG TABLET PO SCH (16:55)
[2022-05-22] MEDS: MORPHINE 2 MG/1 ML SYRINGE IV PRN ×2 (16:55→21:08)
[2022-05-22] MEDS: INSULIN LISPRO 100 UNIT/ML SUBCUT SCH ×2 (17:02→21:09)
[2022-05-22] MEDS: hydrALAZINE 20 MG/1 ML VIAL IV PRN (17:32)
[2022-05-22] MEDS: GABAPENTIN 100 MG CAPSULE PO SCH (21:12)
[2022-05-23] MEDS: ONDANSETRON 4 MG/2 ML VIAL IV PRN (02:12)
[2022-05-23] MEDS: MORPHINE 2 MG/1 ML SYRINGE IV PRN ×3 (02:13→16:12)
[2022-05-23 05:39] LABS: Basophils % 0.4 % (0.0-0.8); Eosinophils # 0.1 10*3/uL (0.0-0.87); Eosinophils % 0.9 % (0.00-10.9); Hemoglobin 7.3 GM/DL (12.0-16.0); Immature Granulocytes % 0.8 %; Immature Granulocytes Absolute 0.09 #; Lymphocytes # 2.5 10*3/uL (1.4-4.0); Lymphocytes % 22.6 % (21.3-54.2); Mean Corpuscular HGB Conc 30.4 GM/DL (32-36); Mean Corpuscular Volume 79.2 FL (87-102); Mean Platelet Volume 10.6 FL (9.6-12.0); Monocytes # 1.1 10*3/uL (0.11-0.8); Monocytes % 9.6 % (1.7-12.7); Neutrophils % 65.7 % (38.7-73.9); Platelet Count 338 T/CUMM (130-400); Red Blood Count 3.03 MC/CUMM (3.8-5.5); Red Cell Distribution Width 19.6 % (9.3-17.3)
[2022-05-23 06:01] LABS: Alanine Aminotransferase 12 U/L (13-56); Albumin 2.1 G/DL (3.4-5.0); Alkaline Phosphatase 92 U/L (45-117); Aspartate Amino Transferase 12 U/L (0-37); Bilirubin,Indirect 0.3 MG/DL (0.0-1.0); Bilirubin,Total < 0.39 MG/DL (0.20-1.00); Blood Urea Nitrogen 47 MG/DL (7-18); Calcium 8.2 MG/DL (8.5-10.1); Carbon Dioxide 24 MMOL/L (21-32); Chloride 106 MMOL/L (98-107); Cholesterol 204 MG/DL (50-200); Glucose 135 MG/DL (74-106); HDL Cholesterol 50 MG/DL (40-60); Potassium 3.2 MMOL/L (3.5-5.1); Risk Ratio 4.08; Sodium 136 MMOL/L (136-145); Thyroid Stimulating Hormone 0.356 uIU/ml (0.358-3.74); Total Protein 5.9 G/DL (6.4-8.2); Triglycerides 140 MG/DL (2-150)
[2022-05-23] MEDS: INSULIN LISPRO 100 UNIT/ML SUBCUT SCH ×4 (07:30→20:47)
[2022-05-23] MEDS ORDERED: POTASSIUM CHLORIDE 20 MEQ TABLET PO ONE (07:43)
[2022-05-23] MEDS ORDERED: BISACODYL 10 MG SUPP RECTAL ONE (07:45)
[2022-05-23] MEDS ORDERED: MAGNESIUM HYDROXIDE SUSP 30 ML UDCUP PO PRN (07:45)
[2022-05-23 08:12] LABS: Free T4 (Free Thyroxine) 1.33 NG/DL (0.76-1.46)
[2022-05-23] MEDS: DOCUSATE SODIUM 100 MG CAPSULE PO SCH ×2 (08:42→20:47)
[2022-05-23] MEDS: POTASSIUM CHLORIDE 20 MEQ TABLET PO SCH (08:43)
[2022-05-23] MEDS: HEPARIN 5,000 UNIT/1 ML VIAL SUBCUT SCH ×2 (08:43→16:11)
[2022-05-23] MEDS: GABAPENTIN 100 MG CAPSULE PO SCH ×2 (08:43→20:48)
[2022-05-23] MEDS: ASPIRIN EC 81 MG TABLET PO SCH (08:44)
[2022-05-23] MEDS: carvediloL 25 MG TABLET PO SCH ×2 (08:44→16:11)
[2022-05-23] MEDS: FUROSEMIDE 40 MG/4 ML VIAL IV SCH ×2 (08:47→20:48)
[2022-05-23] MEDS: hydrALAZINE 20 MG/1 ML VIAL IV PRN (12:39)
[2022-05-23] MEDS: cefTRIAXone 1,000 MG in SODIUM CHLORIDE 0.9% 100 ML IV SCH (16:11)
[2022-05-24] MEDS: HEPARIN 5,000 UNIT/1 ML VIAL SUBCUT SCH ×3 (00:21→18:08)
[2022-05-24] MEDS: ONDANSETRON 4 MG/2 ML VIAL IV PRN (05:34)
[2022-05-24] MEDS: MORPHINE 2 MG/1 ML SYRINGE IV PRN ×2 (05:40→21:46)
[2022-05-24 06:36] LABS: Basophils # 0.1 10*3/uL (0.0-0.2); Basophils % 0.4 % (0.0-0.8); Eosinophils # 0.4 10*3/uL (0.0-0.87); Eosinophils % 3.3 % (0.00-10.9); Hematocrit 24.2 VOL% (35.7-47.0); Hemoglobin 7.4 GM/DL (12.0-16.0); Immature Granulocytes % 0.5 %; Immature Granulocytes Absolute 0.06 #; Lymphocytes # 3.4 10*3/uL (1.4-4.0); Lymphocytes % 29.8 % (21.3-54.2); Mean Corpuscular HGB Conc 30.6 GM/DL (32-36); Mean Corpuscular Volume 79.9 FL (87-102); Mean Platelet Volume 11.2 FL (9.6-12.0); Monocytes # 1.2 10*3/uL (0.11-0.8); Monocytes % 10.8 % (1.7-12.7); Neutrophils % 55.2 % (38.7-73.9); Platelet Count 307 T/CUMM (130-400); Red Blood Count 3.03 MC/CUMM (3.8-5.5); Red Cell Distribution Width 19.1 % (9.3-17.3); White Blood Count 11.2 T/CUMM (4-12)
[2022-05-24] MEDS ORDERED: MAGNESIUM HYDROXIDE SUSP 30 ML UDCUP PO ONE (06:38)
[2022-05-24 06:55] LABS: Calcium 8.2 MG/DL (8.5-10.1); Osmolality,Calculated 289.7 MOS/KG (273-304); Potassium 3.4 MMOL/L (3.5-5.1)
[2022-05-24] MEDS ORDERED: POTASSIUM CHLORIDE 20 MEQ TABLET PO ONE (07:59)
[2022-05-24] MEDS: INSULIN LISPRO 100 UNIT/ML SUBCUT SCH ×4 (09:06→21:45)
[2022-05-24] MEDS: carvediloL 25 MG TABLET PO SCH ×2 (10:39→17:24)
[2022-05-24] MEDS: POTASSIUM CHLORIDE 20 MEQ TABLET PO SCH (10:39)
[2022-05-24] MEDS: GABAPENTIN 100 MG CAPSULE PO SCH ×2 (10:39→21:45)
[2022-05-24] MEDS: DOCUSATE SODIUM 100 MG CAPSULE PO SCH ×2 (10:40→21:45)
[2022-05-24] MEDS: ASPIRIN EC 81 MG TABLET PO SCH (10:40)
[2022-05-24] MEDS: cefTRIAXone 1,000 MG in SODIUM CHLORIDE 0.9% 100 ML IV SCH (17:27)
[2022-05-25] MEDS: HEPARIN 5,000 UNIT/1 ML VIAL SUBCUT SCH ×3 (01:13→17:18)
[2022-05-25 06:30] LABS: Basophils % 0.2 % (0.0-0.8); Eosinophils # 0.5 10*3/uL (0.0-0.87); Eosinophils % 5.3 % (0.00-10.9); Hematocrit 22.8 VOL% (35.7-47.0); Hemoglobin 6.9 GM/DL (12.0-16.0); Immature Granulocytes % 0.3 %; Immature Granulocytes Absolute 0.03 #; Lymphocytes # 2.9 10*3/uL (1.4-4.0); Lymphocytes % 30.2 % (21.3-54.2); Mean Corpuscular HGB Conc 30.3 GM/DL (32-36); Mean Corpuscular Volume 80.6 FL (87-102); Mean Platelet Volume 10.9 FL (9.6-12.0); Monocytes # 1.1 10*3/uL (0.11-0.8); Monocytes % 11.6 % (1.7-12.7); Neutrophils % 52.4 % (38.7-73.9); Platelet Count 269 T/CUMM (130-400); Red Blood Count 2.83 MC/CUMM (3.8-5.5); Red Cell Distribution Width 19.1 % (9.3-17.3); White Blood Count 9.5 T/CUMM (4-12)
[2022-05-25 06:52] LABS: Calcium 8.1 MG/DL (8.5-10.1); Osmolality,Calculated 289.7 MOS/KG (273-304); Potassium 3.9 MMOL/L (3.5-5.1)
[2022-05-25] MEDS: INSULIN LISPRO 100 UNIT/ML SUBCUT SCH ×4 (07:31→20:48)
[2022-05-25] MEDS ORDERED: SODIUM CHLORIDE 0.9% 1,000 ML IV PRN (07:55)
[2022-05-25 09:23] LABS: % Iron Saturation 19.9 % (18-50); Ferritin 400.6 ng/mL (8-252)
[2022-05-25] MEDS: hydrALAZINE 20 MG/1 ML VIAL IV PRN (09:35)
[2022-05-25] MEDS: carvediloL 25 MG TABLET PO SCH ×2 (09:50→17:18)
[2022-05-25] MEDS: ASPIRIN EC 81 MG TABLET PO SCH (10:24)
[2022-05-25] MEDS: POTASSIUM CHLORIDE 20 MEQ TABLET PO SCH (10:24)
[2022-05-25] MEDS: DOCUSATE SODIUM 100 MG CAPSULE PO SCH ×2 (10:24→20:46)
[2022-05-25] MEDS: FUROSEMIDE 40 MG TABLET PO SCH (10:25)
[2022-05-25] MEDS: GABAPENTIN 100 MG CAPSULE PO SCH ×2 (10:25→20:47)
[2022-05-25] MEDS: POLYETHYLENE GLYCOL POWDER 17 GM PACK PO SCH (11:44)
[2022-05-25] MEDS: cefTRIAXone 1,000 MG in SODIUM CHLORIDE 0.9% 100 ML IV SCH (17:19)
[2022-05-25 17:39] LABS: Hematocrit 32.1 VOL% (35.7-47.0)
[2022-05-25] MEDS: SENNA 8.6 MG TABLET PO SCH (20:46)
[2022-05-25] MEDS: MORPHINE 2 MG/1 ML SYRINGE IV PRN (20:47)
[2022-05-26] MEDS: HEPARIN 5,000 UNIT/1 ML VIAL SUBCUT SCH ×3 (03:52→17:03)
[2022-05-26 06:08] LABS: Calcium 8.4 MG/DL (8.5-10.1); Osmolality,Calculated 289.5 MOS/KG (273-304); Potassium 4.4 MMOL/L (3.5-5.1)
[2022-05-26] MEDS: hydrALAZINE 20 MG/1 ML VIAL IV PRN ×2 (07:15→17:40)
[2022-05-26] MEDS: INSULIN LISPRO 100 UNIT/ML SUBCUT SCH ×4 (07:35→21:00)
[2022-05-26 08:19] LABS: Basophils % 0.3 % (0.0-0.8); Eosinophils # 0.6 10*3/uL (0.0-0.87); Eosinophils % 5.2 % (0.00-10.9); Hematocrit 29.6 VOL% (35.7-47.0); Hemoglobin 9.5 GM/DL (12.0-16.0); Immature Granulocytes % 0.3 %; Immature Granulocytes Absolute 0.04 #; Lymphocytes # 2.5 10*3/uL (1.4-4.0); Lymphocytes % 21.1 % (21.3-54.2); Mean Corpuscular HGB Conc 32.1 GM/DL (32-36); Mean Corpuscular Volume 83.1 FL (87-102); Mean Platelet Volume 11.3 FL (9.6-12.0); Monocytes # 1.4 10*3/uL (0.11-0.8); Monocytes % 11.7 % (1.7-12.7); Neutrophils % 61.4 % (38.7-73.9); Platelet Count 269 T/CUMM (130-400); Red Blood Count 3.56 MC/CUMM (3.8-5.5); Red Cell Distribution Width 18.7 % (9.3-17.3); White Blood Count 11.7 T/CUMM (4-12)
[2022-05-26] MEDS: LACTATED RINGERS 1,000 ML IV SCH (13:13)
[2022-05-26] MEDS ORDERED: LABETALOL 20 MG/4 ML SYRINGE IV ONE (13:57)
[2022-05-26] MEDS ORDERED: LIDOCAINE 2% 5 ML VIAL ONE (13:57)
[2022-05-26] MEDS ORDERED: propofoL 200 MG/20 ML VIAL IV ONE (13:57)
[2022-05-26] MEDS: carvediloL 25 MG TABLET PO SCH ×2 (15:03→16:58)
[2022-05-26] MEDS: LINACLOTIDE 145 MCG CAPSULE PO SCH (15:17)
[2022-05-26] MEDS: ASPIRIN EC 81 MG TABLET PO SCH (15:18)
[2022-05-26] MEDS: POTASSIUM CHLORIDE 20 MEQ TABLET PO SCH (15:18)
[2022-05-26] MEDS: GABAPENTIN 100 MG CAPSULE PO SCH ×2 (15:18→21:00)
[2022-05-26] MEDS: POLYETHYLENE GLYCOL POWDER 17 GM PACK PO SCH ×2 (15:18→21:36)
[2022-05-26] MEDS: FUROSEMIDE 40 MG TABLET PO SCH (15:18)
[2022-05-26] MEDS: DOCUSATE SODIUM 100 MG CAPSULE PO SCH ×2 (15:18→20:59)
[2022-05-26] MEDS: cefTRIAXone 1,000 MG in SODIUM CHLORIDE 0.9% 100 ML IV SCH (16:59)
[2022-05-26] MEDS: SENNA 8.6 MG TABLET PO SCH (20:59)
[2022-05-26] MEDS: LUBIPROSTONE 24 MCG CAPSULE PO SCH (21:04)
[2022-05-27] MEDS: HEPARIN 5,000 UNIT/1 ML VIAL SUBCUT SCH ×3 (01:12→17:15)
[2022-05-27 05:48] LABS: Calcium 8.5 MG/DL (8.5-10.1); Osmolality,Calculated 285.8 MOS/KG (273-304); Potassium 4.9 MMOL/L (3.5-5.1)
[2022-05-27] MEDS: hydrALAZINE 20 MG/1 ML VIAL IV PRN (06:39)
[2022-05-27 07:00] LABS: Basophils % 0.3 % (0.0-0.8); Eosinophils # 0.5 10*3/uL (0.0-0.87); Eosinophils % 5.4 % (0.00-10.9); Hematocrit 30.9 VOL% (35.7-47.0); Hemoglobin 9.9 GM/DL (12.0-16.0); Immature Granulocytes % 0.4 %; Immature Granulocytes Absolute 0.04 #; Lymphocytes # 2.2 10*3/uL (1.4-4.0); Lymphocytes % 24.4 % (21.3-54.2); Mean Corpuscular Volume 83.1 FL (87-102); Mean Platelet Volume 11.1 FL (9.6-12.0); Monocytes % 10.4 % (1.7-12.7); Neutrophils % 59.1 % (38.7-73.9); Platelet Count 249 T/CUMM (130-400); Red Blood Count 3.72 MC/CUMM (3.8-5.5); Red Cell Distribution Width 19.1 % (9.3-17.3); White Blood Count 9.2 T/CUMM (4-12)
[2022-05-27] MEDS: LINACLOTIDE 145 MCG CAPSULE PO SCH (09:08)
[2022-05-27] MEDS: LUBIPROSTONE 24 MCG CAPSULE PO SCH ×2 (09:09→21:22)
[2022-05-27] MEDS: carvediloL 25 MG TABLET PO SCH ×2 (09:09→17:15)
[2022-05-27] MEDS: DOCUSATE SODIUM 100 MG CAPSULE PO SCH ×2 (09:09→21:15)
[2022-05-27] MEDS: GABAPENTIN 100 MG CAPSULE PO SCH ×2 (09:09→21:22)
[2022-05-27] MEDS: FUROSEMIDE 40 MG TABLET PO SCH (09:09)
[2022-05-27] MEDS: POLYETHYLENE GLYCOL POWDER 17 GM PACK PO SCH ×2 (09:10→21:15)
[2022-05-27] MEDS: ASPIRIN EC 81 MG TABLET PO SCH (09:10)
[2022-05-27] MEDS: POTASSIUM CHLORIDE 20 MEQ TABLET PO SCH (09:10)
[2022-05-27] MEDS: LACTATED RINGERS 1,000 ML IV SCH (09:10)
[2022-05-27] MEDS: INSULIN LISPRO 100 UNIT/ML SUBCUT SCH ×4 (09:17→23:44)
[2022-05-27] MEDS: cefTRIAXone 1,000 MG in SODIUM CHLORIDE 0.9% 100 ML IV SCH (17:15)
[2022-05-27] MEDS: SENNA 8.6 MG TABLET PO SCH (21:16)
[2022-05-28] MEDS: HEPARIN 5,000 UNIT/1 ML VIAL SUBCUT SCH ×2 (03:13→09:04)
[2022-05-28] MEDS: ONDANSETRON 4 MG/2 ML VIAL IV PRN (03:33)
[2022-05-28] MEDS: DOCUSATE SODIUM 100 MG CAPSULE PO SCH (08:59)
[2022-05-28] MEDS: LINACLOTIDE 145 MCG CAPSULE PO SCH (08:59)
[2022-05-28] MEDS: FUROSEMIDE 40 MG TABLET PO SCH (08:59)
[2022-05-28] MEDS: GABAPENTIN 100 MG CAPSULE PO SCH (08:59)
[2022-05-28] MEDS: ASPIRIN EC 81 MG TABLET PO SCH (08:59)
[2022-05-28] MEDS: carvediloL 25 MG TABLET PO SCH (08:59)
[2022-05-28] MEDS: LUBIPROSTONE 24 MCG CAPSULE PO SCH (08:59)
[2022-05-28] MEDS: POLYETHYLENE GLYCOL POWDER 17 GM PACK PO SCH (09:00)
[2022-05-28] MEDS: POTASSIUM CHLORIDE 20 MEQ TABLET PO SCH (09:03)
[2022-05-28] MEDS: INSULIN LISPRO 100 UNIT/ML SUBCUT SCH ×2 (09:22→11:37)
[2022-05-28 11:51] VITALS: BP 130/53
== END 2022-05-28 12:10 | disposition home or self-care (01) | DRG 291 ==
LOC: N.ED 10:29 → SUATTDRO 15:33 → N.EDINP 15:33 → N.3E 16:25
PROVIDERS: ADMIT Internal Medicine; ATTEND Hospitalist

== ENCOUNTER 2022-05-31 07:17 | Inpatient (IN) ==
[2022-05-31] MEDS ORDERED: hydrALAZINE 20 MG/1 ML VIAL IV STA ×2 (07:58→11:05)
[2022-05-31] MEDS ORDERED: HYDROmorphone 1 MG/1 ML SYRINGE IV STA ×2 (07:58→12:22)
[2022-05-31] MEDS ORDERED: ONDANSETRON 4 MG/2 ML VIAL IV STA ×2 (07:58→12:22)
[2022-05-31 08:32] LABS: Basophils % 0.3 % (0.0-0.8); Immature Granulocytes % 0.5 %; Immature Granulocytes Absolute 0.06 #; Lymphocytes # 1.5 10*3/uL (1.4-4.0); Lymphocytes % 13.9 % (21.3-54.2); Mean Corpuscular HGB Conc 31.4 GM/DL (32-36); Mean Corpuscular Volume 81.6 FL (87-102); Mean Platelet Volume 10.5 FL (9.6-12.0); Monocytes # 0.4 10*3/uL (0.11-0.8); Monocytes % 3.5 % (1.7-12.7); Neutrophils % 81.8 % (38.7-73.9); Platelet Count 284 T/CUMM (130-400); Red Blood Count 4.29 MC/CUMM (3.8-5.5)
[2022-05-31] MEDS ORDERED: LABETALOL 100 MG/20 ML VIAL IV STA ×2 (08:46→11:05)
[2022-05-31 08:58] LABS: Albumin 2.5 G/DL (3.4-5.0); Bilirubin,Total 0.5 MG/DL (0.20-1.00); Calcium 9.2 MG/DL (8.5-10.1); Osmolality,Calculated 293.3 MOS/KG (273-304); Potassium 4.3 MMOL/L (3.5-5.1); Total Protein 7.2 G/DL (6.4-8.2)
[2022-05-31] MEDS ORDERED: PROMETHAZINE 25 MG/1 ML VIAL IM STA (09:22)
[2022-05-31] MEDS ORDERED: FUROSEMIDE 40 MG/4 ML VIAL IV STA (09:28)
[2022-05-31] MEDS ORDERED: hydrALAZINE 20 MG/1 ML VIAL IV PRN (12:28)
[2022-05-31] MEDS: ERYTHROMYCIN INJ 250 MG in SODIUM CHLORIDE 0.9% 100 ML IV SCH ×2 (13:46→23:45)
[2022-05-31] MEDS: carvediloL 25 MG TABLET PO SCH (17:40)
[2022-05-31] MEDS: MORPHINE 2 MG/1 ML SYRINGE IV PRN (20:20)
[2022-05-31] MEDS: GABAPENTIN 100 MG CAPSULE PO SCH (21:01)
[2022-05-31] MEDS: HEPARIN 5,000 UNIT/1 ML VIAL SUBCUT SCH (21:04)
[2022-05-31] MEDS: ONDANSETRON 4 MG/2 ML VIAL IV PRN (23:42)
[2022-06-01] MEDS: MORPHINE 2 MG/1 ML SYRINGE IV PRN ×5 (00:35→22:39)
[2022-06-01] MEDS ORDERED: PROMETHAZINE 25 MG/1 ML VIAL IM PRN (02:28)
[2022-06-01] MEDS: ONDANSETRON 4 MG/2 ML VIAL IV PRN ×4 (05:25→22:40)
[2022-06-01 06:00] LABS: Basophils % 0.2 % (0.0-0.8); Eosinophils % 0.2 % (0.00-10.9); Hemoglobin 9.5 GM/DL (12.0-16.0); Immature Granulocytes % 0.5 %; Immature Granulocytes Absolute 0.06 #; Lymphocytes # 2.5 10*3/uL (1.4-4.0); Lymphocytes % 20.3 % (21.3-54.2); Mean Corpuscular HGB Conc 30.6 GM/DL (32-36); Mean Corpuscular Volume 83.3 FL (87-102); Mean Platelet Volume 10.8 FL (9.6-12.0); Monocytes % 7.6 % (1.7-12.7); Neutrophils % 71.2 % (38.7-73.9); Platelet Count 260 T/CUMM (130-400); Red Blood Count 3.72 MC/CUMM (3.8-5.5); Red Cell Distribution Width 19.9 % (9.3-17.3); White Blood Count 12.5 T/CUMM (4-12)
[2022-06-01 06:16] LABS: Calcium 8.7 MG/DL (8.5-10.1); Osmolality,Calculated 288.7 MOS/KG (273-304); Potassium 4.6 MMOL/L (3.5-5.1)
[2022-06-01] MEDS: ERYTHROMYCIN INJ 250 MG in SODIUM CHLORIDE 0.9% 100 ML IV SCH ×3 (07:15→18:34)
[2022-06-01] MEDS: carvediloL 25 MG TABLET PO SCH ×2 (08:46→18:33)
[2022-06-01] MEDS: GABAPENTIN 100 MG CAPSULE PO SCH ×2 (08:46→21:45)
[2022-06-01] MEDS: HEPARIN 5,000 UNIT/1 ML VIAL SUBCUT SCH ×2 (08:47→21:46)
[2022-06-01] MEDS ORDERED: BISACODYL 10 MG SUPP RECTAL ONE (09:31)
[2022-06-01] MEDS ORDERED: SODIUM CHLORIDE 0.9% 1,000 ML IV SCH (10:00)
[2022-06-01] MEDS: DOCUSATE SODIUM 100 MG CAPSULE PO SCH ×2 (10:35→21:46)
[2022-06-01] MEDS: POLYETHYLENE GLYCOL POWDER 17 GM PACK PO SCH (10:35)
[2022-06-02] MEDS: ERYTHROMYCIN INJ 250 MG in SODIUM CHLORIDE 0.9% 100 ML IV SCH ×4 (00:39→20:32)
[2022-06-02] MEDS: ONDANSETRON 4 MG/2 ML VIAL IV PRN ×5 (03:36→23:06)
[2022-06-02] MEDS: MORPHINE 2 MG/1 ML SYRINGE IV PRN ×3 (03:37→13:52)
[2022-06-02 05:16] LABS: Basophils % 0.3 % (0.0-0.8); Eosinophils # 0.1 10*3/uL (0.0-0.87); Eosinophils % 0.9 % (0.00-10.9); Hematocrit 27.2 VOL% (35.7-47.0); Hemoglobin 8.4 GM/DL (12.0-16.0); Immature Granulocytes % 0.3 %; Immature Granulocytes Absolute 0.04 #; Lymphocytes # 2.8 10*3/uL (1.4-4.0); Lymphocytes % 23.4 % (21.3-54.2); Mean Corpuscular HGB Conc 30.9 GM/DL (32-36); Mean Corpuscular Volume 84.7 FL (87-102); Mean Platelet Volume 10.4 FL (9.6-12.0); Monocytes # 0.9 10*3/uL (0.11-0.8); Monocytes % 7.7 % (1.7-12.7); Neutrophils % 67.4 % (38.7-73.9); Platelet Count 214 T/CUMM (130-400); Red Blood Count 3.21 MC/CUMM (3.8-5.5); Red Cell Distribution Width 19.5 % (9.3-17.3); White Blood Count 11.7 T/CUMM (4-12)
[2022-06-02 07:23] LABS: Calcium 8.1 MG/DL (8.5-10.1); Osmolality,Calculated 286.5 MOS/KG (273-304); Potassium 4.6 MMOL/L (3.5-5.1)
[2022-06-02] MEDS ORDERED: LACTULOSE 20 GM/30 ML UDCUP PO ONE (09:13)
[2022-06-02] MEDS ORDERED: FUROSEMIDE 20 MG/2 ML VIAL IV ONE (09:13)
[2022-06-02] MEDS: GABAPENTIN 100 MG CAPSULE PO SCH ×2 (09:17→20:30)
[2022-06-02] MEDS: carvediloL 25 MG TABLET PO SCH ×2 (09:17→16:56)
[2022-06-02] MEDS: POLYETHYLENE GLYCOL POWDER 17 GM PACK PO SCH (09:17)
[2022-06-02] MEDS: DOCUSATE SODIUM 100 MG CAPSULE PO SCH ×2 (09:17→20:30)
[2022-06-02] MEDS: HEPARIN 5,000 UNIT/1 ML VIAL SUBCUT SCH ×2 (09:58→20:33)
[2022-06-02 15:19] LABS: Bacteria,Urine Occasional /HPF (Few); Hyaline Casts,Urine 14 /LPF (0-3); Mucus,Urine Occasional /LPF (Occasional); RBC,Urine 15-20 /HPF (0-4); Squamous Epithelial Cell,Urine Occasional /HPF (0-10)
[2022-06-02 15:20] LABS: Bilirubin,Urine Negative (Negative); Blood, Urine Negative (Negative); Glucose,Urine (UA) Negative (Negative); Ketones,Urine Trace mg/dL (Negative); Nitrite,Urine Negative (Negative); Protein,Urine >=300 mg/dL (Negative); Urine Appearance Clear (Clear); Urine Color Yellow (Yellow); Urine Specific Gravity 1.032 (1.001-1.035); Urine Urobilinogen 0.2 eU/dL (<2.0)
[2022-06-02] MEDS ORDERED: SODIUM PHOSPHATE ENEMA 133 ML BOTTLE RECTAL ONE (16:30)
[2022-06-02] MEDS: ACETAMINOPHEN 325 MG TABLET PO PRN (20:31)
[2022-06-03] MEDS: ERYTHROMYCIN INJ 250 MG in SODIUM CHLORIDE 0.9% 100 ML IV SCH ×2 (01:08→09:07)
[2022-06-03] MEDS: ACETAMINOPHEN 325 MG TABLET PO PRN ×3 (03:19→22:18)
[2022-06-03] MEDS: ONDANSETRON 4 MG/2 ML VIAL IV PRN ×4 (03:21→22:19)
[2022-06-03 06:46] LABS: Basophils % 0.3 % (0.0-0.8); Eosinophils # 0.1 10*3/uL (0.0-0.87); Hematocrit 28.5 VOL% (35.7-47.0); Hemoglobin 8.9 GM/DL (12.0-16.0); Immature Granulocytes % 0.3 %; Immature Granulocytes Absolute 0.04 #; Lymphocytes # 2.6 10*3/uL (1.4-4.0); Lymphocytes % 21.8 % (21.3-54.2); Mean Corpuscular HGB Conc 31.2 GM/DL (32-36); Mean Corpuscular Volume 83.8 FL (87-102); Mean Platelet Volume 11.3 FL (9.6-12.0); Monocytes % 8.7 % (1.7-12.7); Neutrophils % 67.9 % (38.7-73.9); Platelet Count 233 T/CUMM (130-400); Red Cell Distribution Width 18.8 % (9.3-17.3)
[2022-06-03 07:06] LABS: Calcium 8.5 MG/DL (8.5-10.1); Osmolality,Calculated 278.4 MOS/KG (273-304); Potassium 4.8 MMOL/L (3.5-5.1)
[2022-06-03] MEDS ORDERED: FUROSEMIDE 20 MG/2 ML VIAL IV ONE (08:19)
[2022-06-03] MEDS: ASPIRIN EC 81 MG TABLET PO SCH (09:12)
[2022-06-03] MEDS: LINACLOTIDE 145 MCG CAPSULE PO SCH (09:13)
[2022-06-03] MEDS: DOCUSATE SODIUM 100 MG CAPSULE PO SCH ×2 (09:13→21:32)
[2022-06-03] MEDS: carvediloL 25 MG TABLET PO SCH ×2 (09:13→16:43)
[2022-06-03] MEDS: POLYETHYLENE GLYCOL POWDER 17 GM PACK PO SCH (09:13)
[2022-06-03] MEDS: GABAPENTIN 100 MG CAPSULE PO SCH ×2 (09:13→21:32)
[2022-06-03] MEDS: HEPARIN 5,000 UNIT/1 ML VIAL SUBCUT SCH ×2 (09:14→21:33)
[2022-06-03] MEDS: METOCLOPRAMIDE 5 MG TABLET PO SCH ×2 (11:31→16:43)
[2022-06-03] MEDS ORDERED: ALBUMIN 5% 12.5 GM/250 ML VIAL IV ONE (16:33)
[2022-06-04 07:04] LABS: Basophils % 0.4 % (0.0-0.8); Eosinophils # 0.1 10*3/uL (0.0-0.87); Eosinophils % 1.3 % (0.00-10.9); Hematocrit 26.8 VOL% (35.7-47.0); Hemoglobin 8.3 GM/DL (12.0-16.0); Immature Granulocytes % 0.5 %; Immature Granulocytes Absolute 0.05 #; Lymphocytes # 2.2 10*3/uL (1.4-4.0); Lymphocytes % 20.7 % (21.3-54.2); Mean Corpuscular Volume 83.5 FL (87-102); Mean Platelet Volume 11.1 FL (9.6-12.0); Neutrophils % 67.1 % (38.7-73.9); Platelet Count 220 T/CUMM (130-400); Red Blood Count 3.21 MC/CUMM (3.8-5.5); Red Cell Distribution Width 18.6 % (9.3-17.3); White Blood Count 10.5 T/CUMM (4-12)
[2022-06-04 07:22] LABS: Calcium 8.5 MG/DL (8.5-10.1); Potassium 4.6 MMOL/L (3.5-5.1)
[2022-06-04] MEDS: POLYETHYLENE GLYCOL POWDER 17 GM PACK PO SCH (10:06)
[2022-06-04] MEDS: DOCUSATE SODIUM 100 MG CAPSULE PO SCH ×2 (10:07→21:31)
[2022-06-04] MEDS: carvediloL 25 MG TABLET PO SCH ×2 (10:07→17:13)
[2022-06-04] MEDS: METOCLOPRAMIDE 5 MG TABLET PO SCH ×3 (10:07→17:13)
[2022-06-04] MEDS: ASPIRIN EC 81 MG TABLET PO SCH (10:07)
[2022-06-04] MEDS: HEPARIN 5,000 UNIT/1 ML VIAL SUBCUT SCH ×2 (10:08→21:33)
[2022-06-04] MEDS: LINACLOTIDE 145 MCG CAPSULE PO SCH (10:10)
[2022-06-04] MEDS: GABAPENTIN 100 MG CAPSULE PO SCH ×2 (10:46→21:31)
[2022-06-04] MEDS: ONDANSETRON 4 MG/2 ML VIAL IV PRN (11:46)
[2022-06-05 06:17] LABS: Basophils % 0.3 % (0.0-0.8); Eosinophils # 0.2 10*3/uL (0.0-0.87); Eosinophils % 1.8 % (0.00-10.9); Immature Granulocytes % 0.4 %; Immature Granulocytes Absolute 0.05 #; Lymphocytes # 2.5 10*3/uL (1.4-4.0); Lymphocytes % 19.1 % (21.3-54.2); Mean Corpuscular Volume 82.6 FL (87-102); Monocytes # 1.7 10*3/uL (0.11-0.8); Neutrophils % 65.4 % (38.7-73.9); Platelet Count 226 T/CUMM (130-400); Red Blood Count 3.51 MC/CUMM (3.8-5.5); Red Cell Distribution Width 18.8 % (9.3-17.3)
[2022-06-05 06:37] LABS: Calcium 8.7 MG/DL (8.5-10.1); Osmolality,Calculated 278.2 MOS/KG (273-304); Potassium 4.5 MMOL/L (3.5-5.1)
[2022-06-05] MEDS: carvediloL 25 MG TABLET PO SCH (09:46)
[2022-06-05] MEDS: DOCUSATE SODIUM 100 MG CAPSULE PO SCH (09:46)
[2022-06-05] MEDS: GABAPENTIN 100 MG CAPSULE PO SCH (09:46)
[2022-06-05] MEDS: METOCLOPRAMIDE 5 MG TABLET PO SCH ×2 (09:47→13:24)
[2022-06-05] MEDS: ASPIRIN EC 81 MG TABLET PO SCH (09:47)
[2022-06-05] MEDS: LINACLOTIDE 145 MCG CAPSULE PO SCH (09:47)
[2022-06-05] MEDS: POLYETHYLENE GLYCOL POWDER 17 GM PACK PO SCH (09:47)
[2022-06-05] MEDS: HEPARIN 5,000 UNIT/1 ML VIAL SUBCUT SCH (09:47)
[2022-06-05 11:37] VITALS: BP 146/64
== END 2022-06-05 15:00 | disposition home or self-care (01) | DRG 74 ==
LOC: N.ED 07:17 → N.EDINP 07:17 → SUATTDRO 11:38 → N.3E 22:02
PROVIDERS: ADMIT Internal Medicine; ATTEND Internal Medicine